=== PATIENT | female | born 1970 | race Caucasian/White ===

== ENCOUNTER 2019-06-09 09:00 | Emergency (ER) | payer SELFPAY ==
[~2019-06-09] VITALS: Ht 160 cm; Wt 70.5 kg
[2019-06-09 09:04] VITALS: Ht 160 cm; Wt 70.5 kg
[2019-06-09] MEDS ORDERED: STERAPRED DS 1010 MG PO (09:53)
[2019-06-09] MEDS ORDERED: NAPROSYN500 MG PO (09:53)
[2019-06-09] MEDS ORDERED: SKELAXIN800 MG PO (09:53)
[2019-06-09 10:11] VITALS: BP 124/84
== END 2019-06-09 10:32 | disposition home or self-care (01) ==
LOC: D.ER 09:00
DX: M54.30 Sciatica, unspecified side (principal); M51.26 Other intervertebral disc displacement, lumbar region

== ENCOUNTER 2019-06-16 17:53 | Emergency (ER) | payer SELFPAY ==
[~2019-06-16] VITALS: Ht 160 cm; Wt 77.3 kg
[~2019-06-16 17:53] MED LIST: NAPROSYN500 MG PO; SKELAXIN800 MG PO; STERAPRED DS 1010 MG PO
[2019-06-16 18:11] VITALS: BP 139/100; Ht 160 cm; Wt 77.3 kg
== END 2019-06-16 18:48 | disposition home or self-care (01) ==
LOC: D.ER 17:53
DX: M54.31 Sciatica, right side (principal); F41.9 Anxiety disorder, unspecified; Z76.5 Malingerer [conscious simulation]